=== PATIENT | female | born 1995 | race Caucasian/White ===

== ENCOUNTER 2016-04-03 20:22 | Emergency (ER) | payer OTHER ==
[~2016-04-03] VITALS: Ht 160 cm; Wt 52.2 kg
[2016-04-03 20:35] VITALS: BP 135/77; PULSE 105; RESP 16; TEMP 100.5; O2SAT 100
--- NOTE | 2016-04-03 20:40 | NUR ---
Patient to ER bed 07 to gown for evaluation. Side rails up. Report given to ESPERANZA Philip.
[2016-04-03] MEDS ORDERED: ONDANSETRON HCL 4 MG/2 ML VIAL IVP ONE (20:45)
[2016-04-03] MEDS ORDERED: NACL 0.9% 1,000 ML IV ONE (20:45)
[2016-04-03] MEDS ORDERED: KETOROLAC TROMETHAMINE 30 MG VIAL IVP ONE (20:45)
[2016-04-03] MEDS ORDERED: ACETAMINOPHEN 500 MG TABLET PO ONE (21:00)
--- NOTE | 2016-04-03 21:00 | NUR ---
PT C/O LOWER ABD 08/24 WITH N/V/D SINCE 99. REPORTS FEVER "ALL DAY" PLACED ON THE MONITOR AND WILL CONTINUE TO MONITOR PATIENT.
[2016-04-03 21:03] LABS: BASOPHILS % (AUTO) 0.5 % (0.0-2.0); HEMATOCRIT 40.9 % (36-48); HEMOGLOBIN 14.1 g/dL (12.0-16.0); LYMPHOCYTES # (AUTO) 0.8 K/uL (1.0-5.5); LYMPHOCYTES % (AUTO) 9.7 % (20.5-51.5); MEAN CORPUSCULAR HEMOGLOBIN 30 pg (27-31); MEAN CORPUSCULAR HGB CONC 35 % (32-36); MEAN CORPUSCULAR VOLUME 87 fL (79.0-98.0); MONOCYTES # (AUTO) 0.5 K/uL (0.0-1.0); MONOCYTES % (AUTO) 5.3 % (1.7-9.3); NEUTROPHILS # (AUTO) 7.4 K/uL (1.8-7.7); NEUTROPHILS % (AUTO) 84.5 % (40.0-70.0); PLATELET COUNT (AUTO) 207 K/uL (130-430); RED BLOOD CELL COUNT(AUTO) 4.69 MIL/uL (4.2-6.2); RED CELL DISTRIBUTION WIDTH 12.6 % (9.0-15.0); WHITE BLOOD COUNT (AUTO) 8.7 K/uL (4.8-10.8)
[2016-04-03 21:12] LABS: CALCIUM 9.1 mg/dL (8.4-11.0); CREATININE 0.58 mg/dL (0.55-1.30); POTASSIUM 3.2 mmol/L (3.5-5.1)
[2016-04-03 21:16] LABS: ALBUMIN 4.3 g/dL (3.4-4.8); TOTAL BILIRUBIN 0.6 mg/dL (0.0-1.0)
[2016-04-03 21:17] LABS: BILIRUBIN,URINE NEGATIVE (NEGATIVE); BLOOD, URINE NEGATIVE (NEGATIVE); CLARITY/URINE SL HAZY (CLEAR); COLOR,URINE YELLOW (YELLOW); GLUCOSE,URINE NEGATIVE (NEGATIVE); KETONES,URINE TRACE (NEGATIVE); LEUKOCYTE ESTERASE ,URINE NEGATIVE (NEGATIVE); NITRITE, URINE NEGATIVE (NEGATIVE); PROTEIN URINE NEGATIVE (NEGATIVE); UROBILINOGEN,URINE 0.2 (0.2-1.0)
[2016-04-03] MEDS ORDERED: NS 500 ML IV ONE (21:45)
[2016-04-03] MEDS ORDERED: POTASSIUM CHLORIDE 20 MEQ/PKT PACKET PO ONE (21:45)
--- NOTE | 2016-04-03 22:00 | NUR ---
NO 40MEQ of Potassium, ZARI Snell ok'd 40meq TABs. will medicate patient.
[2016-04-03] MEDS ORDERED: POTASSIUM CHLORIDE 20 MEQ TAB.PRT.SR ONE ×2 (22:05)
--- NOTE | 2016-04-03 22:16 | NUR ---
Patient given written and verbal discharge instructions and verbalizes understanding. ER MD discussed with patient the results and treatment provided. Patient in stable condition. ID arm band removed. Rx of Bill Hernandez given. Patient educated on pain management and to follow up with PMD. Pain Scale 0/10. Opportunity for questions provided and answered.
[2016-04-03 22:18] VITALS: BP 132/72; PULSE 98; RESP 16; TEMP 98.9; O2SAT 100
== END 2016-04-03 22:16 | disposition home or self-care (01) ==
LOC: SED 20:22
DX: K52.9 Noninfective gastroenteritis and colitis, unspecified (principal); E87.6 Hypokalemia
CPT/HCPCS: 36415; 80053; 81003; 81025; 83690; 85025; 96361; 96374; 96375; 99284; J1885; J2405; J7030

== ENCOUNTER 2017-10-03 10:01 | Emergency (ER) | payer MEDICAID, OTHER ==
[~2017-10-03] VITALS: Ht 160 cm; Wt 49.9 kg
[2017-10-03 10:14] VITALS: BP_SYST 120
[2017-10-03 10:26] LABS: BILIRUBIN,URINE NEGATIVE (NEGATIVE); BLOOD, URINE NEGATIVE (NEGATIVE); CLARITY/URINE CLEAR (CLEAR); COLOR,URINE YELLOW (YELLOW); GLUCOSE,URINE NEGATIVE (NEGATIVE); KETONES,URINE 1+ (NEGATIVE); LEUKOCYTE ESTERASE ,URINE NEGATIVE (NEGATIVE); NITRITE, URINE NEGATIVE (NEGATIVE); PROTEIN URINE 1+ (NEGATIVE); UROBILINOGEN,URINE 0.2 (0.2-1.0)
[2017-10-03 10:32] LABS: BACTERIA,URINE FEW /HPF (None Seen); MUCUS,URINE None Seen /LPF (None Seen); RBC,URINE 0-3 /HPF (0-3)
[2017-10-03 11:11] LABS: BASOPHILS # (AUTO) 0.1 K/uL (0.0-0.2); HEMOGLOBIN 13.4 g/dL (12.0-16.0); LYMPHOCYTES # (AUTO) 1.7 K/uL (1.0-5.5); NEUTROPHILS # (AUTO) 3.5 K/uL (1.8-7.7); WHITE BLOOD COUNT (AUTO) 5.8 K/uL (4.8-10.8)
[2017-10-03 11:14] LABS: BASOPHILS % (AUTO) 1.3 % (0.0-2.0); EOSINOPHILS # (AUTO) 0.1 K/uL (0.0-0.4); EOSINOPHILS % (AUTO) 0.9 % (0.0-4.0); HEMATOCRIT 39.3 % (36-48); MEAN CORPUSCULAR HEMOGLOBIN 31 pg (27-31); MEAN CORPUSCULAR HGB CONC 34 % (32-36); MEAN CORPUSCULAR VOLUME 92 fL (79.0-98.0); MONOCYTES # (AUTO) 0.4 K/uL (0.0-1.0); MONOCYTES % (AUTO) 6.7 % (1.7-9.3); NEUTROPHILS % (AUTO) 62.1 % (40.0-70.0); PLATELET COUNT (AUTO) 233 K/uL (130-430); RED BLOOD CELL COUNT(AUTO) 4.29 MIL/uL (4.2-6.2)
[2017-10-03 12:40] VITALS: BP_SYST 115
== END 2017-10-03 12:40 | disposition home or self-care (01) ==
LOC: SED 10:01
DX: O20.0 Threatened abortion (principal); Z3A.01 Less than 8 weeks gestation of pregnancy
CPT/HCPCS: 36415; 76801; 76817; 81000-TC; 81025; 84702-TC; 85025; 86900; 86901; 87086; 99285

== ENCOUNTER 2017-10-06 12:04 | Emergency (ER) | payer MEDICAID ==
[~2017-10-06] VITALS: Ht 170.2 cm; Wt 52.2 kg
[2017-10-06 12:15] VITALS: BP_SYST 103
[2017-10-06 13:01] LABS: BASOPHILS # (AUTO) 0.1 K/uL (0.0-0.2); EOSINOPHILS % (AUTO) 0.5 % (0.0-4.0); HEMATOCRIT 37.6 % (36-48); HEMOGLOBIN 12.9 g/dL (12.0-16.0); LYMPHOCYTES # (AUTO) 1.7 K/uL (1.0-5.5); LYMPHOCYTES % (AUTO) 24.8 % (20.5-51.5); MEAN CORPUSCULAR HEMOGLOBIN 32 pg (27-31); MEAN CORPUSCULAR HGB CONC 34 % (32-36); MEAN CORPUSCULAR VOLUME 92 fL (79.0-98.0); MONOCYTES # (AUTO) 0.3 K/uL (0.0-1.0); MONOCYTES % (AUTO) 4.7 % (1.7-9.3); NEUTROPHILS # (AUTO) 4.7 K/uL (1.8-7.7); PLATELET COUNT (AUTO) 231 K/uL (130-430); RED CELL DISTRIBUTION WIDTH 12.8 % (9.0-15.0); WHITE BLOOD COUNT (AUTO) 6.8 K/uL (4.8-10.8)
[2017-10-06 14:18] VITALS: BP_SYST 109
== END 2017-10-06 14:18 | disposition home or self-care (01) ==
LOC: SED 12:04
DX: O26.852 Spotting complicating pregnancy, second trimester (principal); Z3A.14 14 weeks gestation of pregnancy
CPT/HCPCS: 36415; 76801; 76817; 84702-TC; 85025; 99285

== ENCOUNTER 2017-10-09 18:23 | Emergency (ER) | payer MEDICAID ==
[~2017-10-09] VITALS: Ht 160 cm; Wt 49.9 kg
[2017-10-09 18:23] VITALS: BP_SYST 101
--- NOTE | 2017-10-09 18:23 | NUR ---
BIB significant other, brought back to bed 5. Pt skin cool, clammy, pale. Tachypnea, c/o lower abd pain +vag bleed (2 pads today) s/p taking pill and tylenol #3 today at [facility]. States she is 4 weeks . G1, P0. Hx endometrosis.
--- NOTE | 2017-10-09 18:25 | NUR ---
Pt vomited several times over the side of the bed. Verbal order obtained for zofran 4mg IVP x1.
[2017-10-09] MEDS ORDERED: ONDANSETRON HCL 4 MG/2 ML VIAL ONE (18:33)
--- NOTE | 2017-10-09 18:33 | NUR ---
Medicated for n/v per MD orders.
--- NOTE | 2017-10-09 18:42 | NUR ---
Dr. Caro at bedside for evaluation
[2017-10-09] MEDS ORDERED: ONDANSETRON HCL 4 MG/2 ML VIAL IVP ONE ×2 (18:45→21:30)
[2017-10-09] MEDS ORDERED: MORPHINE 2 MG/ML INJ. SYRINGE IVP ONE (18:45)
--- NOTE | 2017-10-09 18:50 | NUR ---
Phleb at bedside for blood draw.
--- NOTE | 2017-10-09 18:50 | NUR ---
Polo jones in ED - 10/09/17 at 1857 by [facility] Phleb at bedside for evaluation
--- NOTE | 2017-10-09 18:56 | NUR ---
Medicated per MD orders. IVF infusing with no s/s of infiltration at this time. Will cont to monitor
--- NOTE | 2017-10-09 18:58 | NUR ---
Blood cultures drawn
[2017-10-09] MEDS ORDERED: NACL 0.9% 1,000 ML IV ONE (19:00)
[2017-10-09 19:15] LABS: BASOPHILS # (AUTO) 0.1 K/uL (0.0-0.2); BASOPHILS % (AUTO) 0.8 % (0.0-2.0); HEMATOCRIT 38.4 % (36-48); HEMOGLOBIN 12.9 g/dL (12.0-16.0); LYMPHOCYTES # (AUTO) 1.5 K/uL (1.0-5.5); LYMPHOCYTES % (AUTO) 13.8 % (20.5-51.5); MEAN CORPUSCULAR HEMOGLOBIN 31 pg (27-31); MEAN CORPUSCULAR HGB CONC 34 % (32-36); MEAN CORPUSCULAR VOLUME 93 fL (79.0-98.0); MONOCYTES # (AUTO) 0.3 K/uL (0.0-1.0); NEUTROPHILS # (AUTO) 8.7 K/uL (1.8-7.7); NEUTROPHILS % (AUTO) 82.4 % (40.0-70.0); PLATELET COUNT (AUTO) 251 K/uL (130-430); RED BLOOD CELL COUNT(AUTO) 4.14 MIL/uL (4.2-6.2); RED CELL DISTRIBUTION WIDTH 12.7 % (9.0-15.0); WHITE BLOOD COUNT (AUTO) 10.6 K/uL (4.8-10.8)
--- NOTE | 2017-10-09 19:20 | NUR ---
6/10 abd pain improved from earlier; no further interventions required at this time; family at bedside
[2017-10-09 19:23] LABS: INR 1.1 (0.8-1.2); PROTHROMBIN TIME 11.2 SECS (9.5-12.5)
[2017-10-09 19:24] LABS: CALCIUM 9.2 mg/dL (8.4-11.0); CREATININE 0.89 mg/dL (0.55-1.30); POTASSIUM 3.3 mmol/L (3.5-5.1)
[2017-10-09 19:52] LABS: ALBUMIN 4.1 g/dL (3.4-4.8); TOTAL BILIRUBIN 0.6 mg/dL (0.0-1.0)
--- NOTE | 2017-10-09 20:00 | NUR ---
US being performed at bedside; pt milena
--- NOTE | 2017-10-09 20:11 | NUR ---
pt agrees to have transvaginal US
--- NOTE | 2017-10-09 21:00 | NUR ---
pt reports pain worsening 8/10 abd cramping and request intervention; Dr. Doyle made aware
--- NOTE | 2017-10-09 21:11 | NUR ---
bilingual call center representative pharmacy called for dosage on Methotrexate IM to be given. Spoke to Gumaro. Will call back with dosages.
--- NOTE | 2017-10-09 21:15 | NUR ---
Gumaro, Oncall pharmacy called back with dosages. Methotrexate 75 MG IM to be administed by . Dr. Doyle notified. Medication not in Pyxis. tufting supervisor, Macarena, notified to obtain medication from night locker. She stated will call back. Charge nurse notified.
--- NOTE | 2017-10-09 21:20 | NUR ---
Dr. Doyle at bedside to discuss results and treatment with patient/family
[2017-10-09] MEDS ORDERED: MORPHINE 4 MG/ML INJ. SYRINGE IVP ONE (21:30)
--- NOTE | 2017-10-09 21:38 | NUR ---
patient moved to bed 4
--- NOTE | 2017-10-09 21:40 | NUR ---
Dr. Doyle at bedside discussing plan of care with pt and family
--- NOTE | 2017-10-09 21:55 | NUR ---
reports abd pain returning 8/10 at times and request pain intervention; Morphine and Zofran IVP given as ordered; will reassess and continue to monitor
--- NOTE | 2017-10-09 21:59 | NUR ---
10/24 abd pain; admin Morphine and Zofran as ordered; VSS BP 107/58 P78 R 16; will continue to monitor and reassess
[2017-10-09] MEDS ORDERED: metHOTREXATe PF 50 MG/2 ML VIAL (25 MG/ML) IM ONE (22:15)
--- NOTE | 2017-10-09 22:30 | NUR ---
4/10 abd pain improved from earlier; family at bedside; pt in stable condition
--- NOTE | 2017-10-09 23:00 | NUR ---
endorsed care to ESPERANZA Galvez; pt in stable condition; pending Methotrexate
--- NOTE | 2017-10-09 23:30 | NUR ---
Per housekeeping department worker waiting for on-call pharmacy for IM methotrexate medication at this time.
--- NOTE | 2017-10-10 00:39 | NUR ---
Per manager housekeeping on-call pharmacy called multiple times no response.
--- NOTE | 2017-10-10 01:00 | NUR ---
Patient continues to rest quietly in bed awaiting medication. No needs verbalized at this time.
--- NOTE | 2017-10-10 01:40 | NUR ---
ED MD Doyle at bedside reassessing patient. Patient is refusing methotrexate at this time. Patient advised by ED MD Doyle she will be signing out AMA.
[2017-10-10] MEDS ORDERED: PROMETHAZINE HCL 25 MG/ML AMP IVP ONE (01:45)
[2017-10-10 02:00] VITALS: BP_SYST 111
--- NOTE | 2017-10-10 02:02 | NUR ---
Patient does not wish to proceed with medical care recommended by Dr. Doyle. Patient given information related to possible complications, up to and including , which could occur as a result of leaving hospital at this time. Patient verbalizes understanding of risks involved leaving against medical advice. Patient has signed AMA form. Patient given Rx for Zofran and Tylenol with Codeine. Patient also provide instructions on incomplete miscarriage, pelvic pain and endometriosis.
== END 2017-10-10 02:00 | disposition left against medical advice (07) ==
LOC: SED 18:23
DX: O03.9 Complete or unspecified spontaneous abortion without complication (principal); O46.91 Antepartum hemorrhage, unspecified, first trimester; O26.891 Other specified pregnancy related conditions, first trimester; R10.2 Pelvic and perineal pain; N80.9 Endometriosis, unspecified; Z3A.01 Less than 8 weeks gestation of pregnancy
CPT/HCPCS: 36415; 76801; 76817; 80053; 84702; 85025; 85610; 86901; 96361; 96374; 96375; 96376; 99285; J2270 ×2; J2405; J2550; J7030; J9260

== ENCOUNTER 2018-04-16 03:59 | Emergency (ER) | payer MEDICAID ==
[~2018-04-16] VITALS: Ht 160 cm; Wt 49.9 kg
[2018-04-16 04:05] VITALS: BP_SYST 154
[2018-04-16] MEDS ORDERED: NACL 0.9% 1,000 ML IV ONE (04:26)
[2018-04-16] MEDS ORDERED: fentaNYL CITRATE/PF 100 MCG/2 ML AMP IVP ONE (04:30)
[2018-04-16] MEDS ORDERED: fentaNYL CITRATE/PF 100 MCG/2 ML AMP ONE (04:58)
[2018-04-16 05:20] LABS: BASOPHILS % (AUTO) 0.7 % (0.0-2.0); EOSINOPHILS # (AUTO) 0.2 K/uL (0.0-0.4); EOSINOPHILS % (AUTO) 2.3 % (0.0-4.0); HEMATOCRIT 39.3 % (36-48); HEMOGLOBIN 12.9 g/dL (12.0-16.0); LYMPHOCYTES # (AUTO) 2.3 K/uL (1.0-5.5); LYMPHOCYTES % (AUTO) 33.8 % (20.5-51.5); MEAN CORPUSCULAR HEMOGLOBIN 30 pg (27-31); MEAN CORPUSCULAR HGB CONC 33 % (32-36); MEAN CORPUSCULAR VOLUME 91 fL (79.0-98.0); MONOCYTES # (AUTO) 0.5 K/uL (0.0-1.0); MONOCYTES % (AUTO) 7.7 % (1.7-9.3); NEUTROPHILS # (AUTO) 3.9 K/uL (1.8-7.7); NEUTROPHILS % (AUTO) 55.5 % (40.0-70.0); PLATELET COUNT (AUTO) 275 K/uL (130-430); RED BLOOD CELL COUNT(AUTO) 4.33 MIL/uL (4.2-6.2); RED CELL DISTRIBUTION WIDTH 13.8 % (9.0-15.0); WHITE BLOOD COUNT (AUTO) 6.9 K/uL (4.8-10.8)
[2018-04-16 05:34] LABS: CALCIUM 8.5 mg/dL (8.4-11.0); CREATININE 0.42 mg/dL (0.55-1.30); POTASSIUM 3.5 mmol/L (3.5-5.1)
[2018-04-16 05:41] LABS: ALBUMIN 3.5 g/dL (3.4-4.8); TOTAL BILIRUBIN 0.3 mg/dL (0.0-1.0)
[2018-04-16 06:19] LABS: BILIRUBIN,URINE NEGATIVE (NEGATIVE); BLOOD, URINE NEGATIVE (NEGATIVE); CLARITY/URINE CLEAR (CLEAR); COLOR,URINE YELLOW (YELLOW); GLUCOSE,URINE NEGATIVE (NEGATIVE); KETONES,URINE NEGATIVE (NEGATIVE); LEUKOCYTE ESTERASE ,URINE NEGATIVE (NEGATIVE); NITRITE, URINE NEGATIVE (NEGATIVE); PH,URINE 6.5 (5.0-8.0); PROTEIN URINE NEGATIVE (NEGATIVE); UROBILINOGEN,URINE 0.2 (0.2-1.0)
[2018-04-16] MEDS ORDERED: KETOROLAC TROMETHAMINE 30 MG VIAL IVP ONE (06:45)
[2018-04-16] MEDS ORDERED: KETOROLAC TROMETHAMINE 30 MG VIAL ONE (06:46)
[2018-04-16 07:11] VITALS: BP_SYST 154
== END 2018-04-16 07:11 | disposition home or self-care (01) ==
LOC: SED 03:59
DX: O20.0 Threatened abortion (principal); Z3A.01 Less than 8 weeks gestation of pregnancy
CPT/HCPCS: 36415; 76805; 80053; 81003; 81025; 84702; 85025; 96374; 96375; 99284; J1885; J3010; J7030

== ENCOUNTER 2018-09-05 14:01 | Emergency (ER) | payer MEDICAID ==
[~2018-09-05] VITALS: Ht 160 cm; Wt 49.9 kg
[2018-09-05 14:08] VITALS: BP_SYST 111
[2018-09-05] MEDS ORDERED: LIDOCAINE/EPI 2% 1:100000 20 ML VIAL INJ ONE (15:30)
[2018-09-05 16:19] VITALS: BP_SYST 103
[2018-09-05] MEDS ORDERED: BACITRACIN 1 GM OINT TP ONE (16:20)
== END 2018-09-05 16:19 | disposition home or self-care (01) ==
LOC: SED 14:01
DX: S81.812A Laceration without foreign body, left lower leg, initial encounter (principal); R03.0 Elevated blood-pressure reading, without diagnosis of hypertension; W26.8XXA Contact with other sharp object(s), not elsewhere classified, initial encounter; Y93.89 Activity, other specified; Y92.89 Other specified places as the place of occurrence of the external cause; Y99.8 Other external cause status
CPT/HCPCS: 99283

== ENCOUNTER → 2019-02-16 | Emergency (ER) | payer MEDICAID ==
[~2019-02-16] VITALS: Ht 160 cm; Wt 49.9 kg
[2019-02-16 15:22] VITALS: BP_SYST 149
[2019-02-16 16:18] LABS: BILIRUBIN,URINE NEGATIVE (NEGATIVE); BLOOD, URINE NEGATIVE (NEGATIVE); COLOR,URINE YELLOW (YELLOW); GLUCOSE,URINE NEGATIVE (NEGATIVE); KETONES,URINE NEGATIVE (NEGATIVE); LEUKOCYTE ESTERASE ,URINE NEGATIVE (NEGATIVE); NITRITE, URINE NEGATIVE (NEGATIVE); PH,URINE 7.5 (5.0-8.0); PROTEIN URINE NEGATIVE (NEGATIVE); UROBILINOGEN,URINE 0.2 (0.2-1.0)
[2019-02-16 16:29] LABS: CLARITY/URINE HAZY (CLEAR)
[2019-02-16 16:34] LABS: BASOPHILS % (AUTO) 0.3 % (0.0-2.0); EOSINOPHILS % (AUTO) 0.4 % (0.0-4.0); HEMATOCRIT 39.3 % (36-48); HEMOGLOBIN 13.2 g/dL (12.0-16.0); LYMPHOCYTES # (AUTO) 1.5 K/uL (1.0-5.5); LYMPHOCYTES % (AUTO) 15.7 % (20.5-51.5); MEAN CORPUSCULAR HEMOGLOBIN 31 pg (27-31); MEAN CORPUSCULAR HGB CONC 34 % (32-36); MEAN CORPUSCULAR VOLUME 93 fL (79.0-98.0); MONOCYTES # (AUTO) 0.5 K/uL (0.0-1.0); MONOCYTES % (AUTO) 5.4 % (1.7-9.3); NEUTROPHILS # (AUTO) 7.6 K/uL (1.8-7.7); NEUTROPHILS % (AUTO) 78.2 % (40.0-70.0); PLATELET COUNT (AUTO) 247 K/uL (130-430); RED BLOOD CELL COUNT(AUTO) 4.24 MIL/uL (4.2-6.2); RED CELL DISTRIBUTION WIDTH 14.5 % (9.0-15.0); WHITE BLOOD COUNT (AUTO) 9.7 K/uL (4.8-10.8)
[2019-02-16 16:42] LABS: CREATININE 0.43 mg/dL (0.55-1.30); POTASSIUM 3.5 mmol/L (3.5-5.1)
--- NOTE | 2019-02-16 16:48 | NUR ---
Patient to TRIAGE for evaluation.
--- NOTE | 2019-02-16 16:49 | NUR ---
ER at bedside examining patient.
--- NOTE | 2019-02-16 16:49 | NUR ---
PT PRESENTS TO ED C/O INTERMITTENT SPOTTING W/
[2019-02-16 16:50] VITALS: BP_SYST 149
--- NOTE | 2019-02-16 16:50 | NUR ---
Patient given written and verbal discharge instructions and verbalizes understanding. ER MD discussed with patient the results and treatment provided. Patient in stable condition. ID arm band removed. No Rx given. Patient educated on pain management and to follow up with PMD. Pain Scale 0. Opportunity for questions provided and answered. Medication side effect fact sheet provided.
== END | disposition still patient (30) ==
LOC: SED 15:09
DX: O20.0 Threatened abortion (principal); Z3A.15 15 weeks gestation of pregnancy
CPT/HCPCS: 36415; 76805-TC; 80048; 81002; 81003; 81025; 85025; 86901; 99284

== ENCOUNTER 2019-04-27 20:45 | Observation (INO) | payer MEDICAID ==
[~2019-04-27] VITALS: Ht 160 cm; Wt 54.4 kg
[2019-04-27 22:29] LABS: BASOPHILS % (AUTO) 0.6 % (0.0-2.0); EOSINOPHILS # (AUTO) 0.1 K/uL (0.0-0.4); EOSINOPHILS % (AUTO) 1.1 % (0.0-4.0); HEMATOCRIT 34.7 % (36-48); HEMOGLOBIN 11.7 g/dL (12.0-16.0); LYMPHOCYTES # (AUTO) 1.9 K/uL (1.0-5.5); LYMPHOCYTES % (AUTO) 23.2 % (20.5-51.5); MEAN CORPUSCULAR HEMOGLOBIN 32 pg (27-31); MEAN CORPUSCULAR HGB CONC 34 % (32-36); MEAN CORPUSCULAR VOLUME 96 fL (79.0-98.0); MONOCYTES # (AUTO) 0.7 K/uL (0.0-1.0); MONOCYTES % (AUTO) 8.2 % (1.7-9.3); NEUTROPHILS # (AUTO) 5.5 K/uL (1.8-7.7); NEUTROPHILS % (AUTO) 66.9 % (40.0-70.0); PLATELET COUNT (AUTO) 217 K/uL (130-430); RED BLOOD CELL COUNT(AUTO) 3.63 MIL/uL (4.2-6.2); RED CELL DISTRIBUTION WIDTH 14.3 % (9.0-15.0); WHITE BLOOD COUNT (AUTO) 8.3 K/uL (4.8-10.8)
[2019-04-27 22:47] LABS: BILIRUBIN,URINE NEGATIVE (NEGATIVE); BLOOD, URINE NEGATIVE (NEGATIVE); CLARITY/URINE SL CLOUDY (CLEAR); COLOR,URINE YELLOW (YELLOW); GLUCOSE,URINE NEGATIVE (NEGATIVE); KETONES,URINE NEGATIVE (NEGATIVE); LEUKOCYTE ESTERASE ,URINE NEGATIVE (NEGATIVE); NITRITE, URINE NEGATIVE (NEGATIVE); PH,URINE 6.5 (5.0-8.0); PROTEIN URINE NEGATIVE (NEGATIVE); UROBILINOGEN,URINE 0.2 (0.2-1.0)
[2019-04-27 22:49] LABS: ALBUMIN 2.9 g/dL (3.4-4.8); CREATININE 0.4 mg/dL (0.55-1.30); POTASSIUM 3.8 mmol/L (3.5-5.1); TOTAL BILIRUBIN 0.1 mg/dL (0.0-1.0)
[2019-04-27 22:54] LABS: CALCIUM 8.8 mg/dL (8.4-11.0)
== END 2019-04-28 00:50 | disposition home or self-care (01) ==
LOC: SPU 20:45
PROVIDERS: ADMIT Obstetrics & Gynecology; ATTEND Obstetrics & Gynecology
DX: O46.92 Antepartum hemorrhage, unspecified, second trimester (principal); O26.892 Other specified pregnancy related conditions, second trimester; R10.9 Unspecified abdominal pain; Z3A.25 25 weeks gestation of pregnancy
CPT/HCPCS: 36415; 76805; 80053; 81002; 81003; 85025; G0378

== ENCOUNTER 2019-08-25 02:25 | Observation (INO) | payer MEDICAID ==
[~2019-08-25] VITALS: Ht 160 cm; Wt 64.5 kg
[2019-08-25 02:30] VITALS: BP_SYST 119
--- NOTE | 2019-08-25 02:30 | NUR ---
Patient triaged and placed in waiting room. VSS and patient appears in no acute distress at this time. Accompanied by SELF, awaiting available bed, and MD notified of need for MSE.
--- NOTE | 2019-08-25 03:12 | NUR ---
Patient to ER bed 6 to gown for evaluation. Side rails up. Report given to AUDIE MATA.
--- NOTE | 2019-08-25 03:14 | NUR ---
Pt came from home complaining of severe abdominal pain/back pain starting around 1900 on 08/24/2019 that is now full body aches. Pt describes her pain as throbbing and rates it a 10 out of 10. Pt stated she had a 2 days ago and the pain originally started at her incision site today. Pt reports her pain is now mostly in her back. Pt reports a low grade fever of 100.1 yesterday and took motrin 600mg at 2100pm. Pt states she feels nauseous and has pain while urinating and hematuria for 2days. Pt denies vomiting, diarrhea, chest pain, shortness of breath, cough. Pt denies PMH and taking daily medications. Pt does not have any other medical complaints at this time. Will continue to monitor.
--- NOTE | 2019-08-25 03:15 | NUR ---
Pts incision site is warm to the touch but does not appear reddened. Area below incision site appears to be swollen.
--- NOTE | 2019-08-25 03:40 | NUR ---
ER Dr. Loja at bedside examining patient.
[2019-08-25 03:55] LABS: BILIRUBIN,URINE NEGATIVE (NEGATIVE); BLOOD, URINE 2+ (NEGATIVE); CLARITY/URINE CLEAR (CLEAR); COLOR,URINE YELLOW (YELLOW); GLUCOSE,URINE NEGATIVE (NEGATIVE); KETONES,URINE 1+ (NEGATIVE); LEUKOCYTE ESTERASE ,URINE 1+ (NEGATIVE); NITRITE, URINE NEGATIVE (NEGATIVE); PROTEIN URINE NEGATIVE (NEGATIVE); UROBILINOGEN,URINE 0.2 (0.2-1.0)
[2019-08-25] MEDS ORDERED: GENTAMICIN 100 mg/50 mL NS 50 ML IV ONE (04:00)
[2019-08-25] MEDS ORDERED: MORPHINE 4 MG/ML INJ. SYRINGE IM ONE (04:00)
[2019-08-25] MEDS ORDERED: CLINDAMYCIN 600 mg/50mL D5W 50 ML IV ONE (04:00)
--- NOTE | 2019-08-25 04:00 | NUR ---
# 20 gauge angiocath placed to LAC. Use of asceptic technique. Opsite placed over site. Blood return noted. Blood, blood cultures, lactic for lab drawn from site. Flushed with 10 cc of normal saline. No evidence of infiltration noted. Patient tolerated well.
[2019-08-25 04:01] LABS: BACTERIA,URINE FEW /HPF (None Seen)
[2019-08-25 04:22] LABS: BASOPHILS % (AUTO) 0.2 % (0.0-2.0); EOSINOPHILS # (AUTO) 0.2 K/uL (0.0-0.4); EOSINOPHILS % (AUTO) 1.3 % (0.0-4.0); HEMATOCRIT 34.8 % (36-48); HEMOGLOBIN 11.5 g/dL (12.0-16.0); LYMPHOCYTES # (AUTO) 1.5 K/uL (1.0-5.5); LYMPHOCYTES % (AUTO) 11.5 % (20.5-51.5); MEAN CORPUSCULAR HEMOGLOBIN 31 pg (27-31); MEAN CORPUSCULAR HGB CONC 33 % (32-36); MEAN CORPUSCULAR VOLUME 93 fL (79.0-98.0); MONOCYTES # (AUTO) 0.6 K/uL (0.0-1.0); NEUTROPHILS # (AUTO) 10.6 K/uL (1.8-7.7); PLATELET COUNT (AUTO) 204 K/uL (130-430); RED BLOOD CELL COUNT(AUTO) 3.73 MIL/uL (4.2-6.2); RED CELL DISTRIBUTION WIDTH 15.8 % (9.0-15.0)
--- NOTE | 2019-08-25 04:30 | NUR ---
PATIENT IS REFUSING MORPHINE AT THIS TIME UNTIL SHE IS ABLE TO BREASTFEED. PATIENT IS AWARE THAT SHE IS ABLE TO TAKE MORPHINE WHILE PER MD.
[2019-08-25 04:32] LABS: CALCIUM 9.1 mg/dL (8.4-11.0); CREATININE 0.8 mg/dL (0.55-1.30); POTASSIUM 3.4 mmol/L (3.5-5.1)
--- NOTE | 2019-08-25 04:32 | NUR ---
DR. RODRIGUEZ AT BEDSIDE WITH ESPERANZA BRONSON COMPLETING PELVIC EXAM.
--- NOTE | 2019-08-25 04:40 | NUR ---
PATIENT ATTEMPTED TO BREASTFEED .
[2019-08-25 04:43] LABS: ALBUMIN 2.4 g/dL (3.4-4.8); TOTAL BILIRUBIN 0.2 mg/dL (0.0-1.0)
[2019-08-25] MEDS ORDERED: MORPHINE 2 MG/ML INJ. SYRINGE IVP PRN (05:00)
[2019-08-25] MEDS ORDERED: ONDANSETRON HCL 4 MG/2 ML VIAL IVP PRN (05:00)
--- NOTE | 2019-08-25 05:10 | NUR ---
Ultrasound at bedside.
--- NOTE | 2019-08-25 05:25 | NUR ---
Medication reconciliation completed with information provided by PATIENT. Any prior medication reconciliation on file was reviewed and corrected.
--- NOTE | 2019-08-25 05:25 | NUR ---
Patient's code status is FULL CODE paperwork completed and placed in chart.
[2019-08-25] MEDS ORDERED: NACL 0.9% 2,000 ML IV ONE (05:30)
--- NOTE | 2019-08-25 05:31 | NUR ---
ULTRASOUND FINISHED. PATIENT VITAL SIGNS STABLE.
--- NOTE | 2019-08-25 05:37 | NUR ---
FIRST LITER OF NORMAL SALINE STARTED AT 999MLS/HR PER MD ORDER.
--- NOTE | 2019-08-25 05:48 | NUR ---
Patient will be admitted to care of DR. LOPEZ. Admitted to [facility]UR[facility] unit. Will go to room 108C. Belongings list completed. Complete and up to date summary report printed. SBAR report to be given at bedside with opportunity for questions.
--- NOTE | 2019-08-25 05:50 | NUR ---
PATIENT ATTEMPTING TO USE BREAST PUMP TO EXPEL BREASTMILK.
[2019-08-25] MEDS ORDERED: PIPERACILLIN/TAZO 3.375 GM in NS 50 ML IV SCH (06:00)
[2019-08-25] MEDS ORDERED: PIPERACILLIN/TAZOBACTAM 3.375 GM/VIAL (ZOSYN) IV ONE (06:01)
--- NOTE | 2019-08-25 06:14 | NUR ---
Transfer to [facility]. IV present no sign or symptom of infiltration. REPORT CALLED TO ESPERANZA THOMPSON.
--- NOTE | 2019-08-25 06:33 | NUR ---
ADMISSION: The patient, MIKE BARNES, 24 y/o, F admitted by DAMEON LOPEZ MD, with the diagnosis of post endometriosis to room 108C was given written information regarding hospital policies, unit procedures and contact persons.
[2019-08-25 06:38] VITALS: BP_SYST 123
--- NOTE | 2019-08-25 07:45 | NUR ---
INITIAL NOTE PT AWAKE, RESTING IN BED. IVF INFUSING WELL. PT SEEMS ANXIOUS, SHE STATES SHE WANTS TO LEAVE DUE TO HER BABY HAVING A FEVER. EDUCATE PT ON IMPORTANCE LEAVING AGAINST MEDICAL ADVICE. PT VERBALIZED UNDERSTANDING. WILL RETURN WITH AMA FORM. IVF INFUSING AT THIS TIME. CALL LIGHT WITHIN REACH, BED IN LOW AND LOCKED POSITION WITH BED ALARM ON.
--- NOTE | 2019-08-25 08:20 | NUR ---
AMA Patient does not wish to proceed with medical care recommended by Dr. Barnes. Patient given information related to possible complications, up to and including , which could occur as a result of leaving hospital at this time. Patient verbalizes understanding of risks involved leaving against medical advice. Patient has signed AMA form. All belongings with pt. IV catheter removed, catheter intact, no bleeding. ID hospital band removed. Escorted pt via wheelchair to front hospital parking lot.
== END 2019-08-25 08:20 | disposition left against medical advice (07) ==
LOC: SED 02:25 → INTOOBSV 04:58 → SMU 04:58
PROVIDERS: ADMIT Obstetrics & Gynecology; ATTEND Obstetrics & Gynecology
DX: O86.12 Endometritis following delivery (principal)
CPT/HCPCS: 36415; 76856; 80053; 81000; 81025; 83605; 83690; 84702; 85025; 87040; 87086; 96365; 96367 ×2; 96375; 99285; G0378; J1580; J2270; J2543; J3490; J7030; 96361